=== PATIENT | male | born 1955 ===

== ENCOUNTER 2018-03-11 11:13 | Outpatient (CLI) | payer BC | END 2018-03-11 11:29 | disposition home or self-care (01) | LOC: LAB 11:13 | DX: N39.0 Urinary tract infection, site not specified (principal); R82.79 Other abnormal findings on microbiological examination of urine ==

== ENCOUNTER → 2018-03-11 | Outpatient (CLI) | payer BC | END | disposition home or self-care (01) | LOC: PPHC 10:26 | DX: N39.0 Urinary tract infection, site not specified (principal) ==